=== PATIENT | female | born 1980 | race Two or more races ===

== ENCOUNTER 2018-11-21 01:20 | Emergency (ER) | payer SELFPAY ==
--- NOTE | 2018-11-21 01:27 | NUR ---
ED Nurse Note: Patient is leaving without being seen. at time of arrival patient just states that she wants her temperature checked. temp of 99.1. patient repeatedly asked if she had a fever. patient walked out of ED with no distress and walked out with a steady gait. complains of no pain.
--- NOTE | 2018-11-21 01:34 | Emergency Room Report ---
History of Present Illness General Chief Complaint: To Be Triaged Present Illness HPI This is a 38-year-old female who presents with chief complaint of flulike illness. She checked and to ask triage to check her temperature. Once she found out that she did not have a fever she did not want to check in and left. I do not see this patient. Medical Decision Making Diagnostic Impression: Primary Impression: Flu-like symptoms Disposition: LEFT W/OUT BEING SEEN Nahid Hernandez MD Nov 21, 2018 01:34
== END 2018-11-21 01:45 | disposition left against medical advice (07) ==
LOC: EMR 01:39
DX: Z53.21 Procedure and treatment not carried out due to patient leaving prior to being seen by health care provider (principal)